=== PATIENT | female | born 1975 | race Caucasian/White ===

== ENCOUNTER 2023-09-22 07:46 | Emergency (ER) | payer BC, SELFPAY ==
--- NOTE | ~2023-09-22 | CT_ITS ---
EXAMINATION: CT abdomen pelvis wo con DATE: 09/22/2023 10:12 INDICATION: Epigastric pain TECHNIQUE: Computed tomography (CT) of the abdomen and pelvis was performed without intravenous contr ast. The dose-length product was 523.28 mGy-cm. Automated exposure control and iterative reconstructi on technique were employed. COMPARISON: None. FINDINGS: Lung bases unremarkable. Heart size normal. No significant pleural or pericardial effusion. There are moderately distended fluid-filled loops of small bowel, colon and stomach without transiti on site, consistent with ileus. There is a focal segment of small bowel wall thickening in the pelvis , suspicious for enteritis per Lung bases are unremarkable. Heart size normal. No significant pleural or pericardial effusion. The l iver, spleen, pancreas, adrenal glands and kidneys are unremarkable. No hydronephrosis. Gallbladder i s present. Mild lumbar spondylosis. No free air or free fluid. IMPRESSION: 1. Moderately distended fluid-filled bowel throughout the abdomen, consistent with ileus. Focal wall thickening of a distal segment of small bowel, suspicious for enteritis. Reviewed, dictated and finalized at location A. TUBE BENDER IMPRESSION: 1. Moderately distended fluid-filled bowel throughout the abdomen, consistent w ith ileus. Focal wall thickening of a distal segment of small bowel, suspicious for enteritis.
[2023-09-22 07:50] VITALS: BP 133/75; PULSE 106; RESP 16; TEMP 36.2; O2SAT 100
--- NOTE | 2023-09-22 07:54 | ECG_ITS ---
Measurements Intervals [place] Rate: 103 P: 51 MO: 118 QRS: 42 QRSD: 100 T: 78 QT: 363 QTc: 477 Interpretive Statements SINUS TACHYCARDIA WITH SHORT MO INTERVAL OTHERWISE NORMAL ECG NO PREVIOUS ECG AVAILABLE FOR COMPARISON Electronically Signed On 09-22-2023 9:08:51 TRAFFIC COUNTER by Je Valdez M.D.
--- NOTE | 2023-09-22 08:22 | ED.GENADULT ---
HPI - General Adult General Chief complaint: Nausea/Vomiting/Diarrhea Stated complaint: N/V/D since after eating [employer] chicken Time Seen by Provider: 09/22/23 08:00 History of Present Illness HPI narrative: 48-year-old female presenting to the emergency department for evaluation of nausea vomiting diarrhea and epigastric pain. Patient reports she suspects that she had some bad chicken . Patient reports that her symptoms have been worsening. Patient does report associated nausea vomiting diarrhea and abdominal pain. Patient is diabetic but does not have her insulin pump on at the time. Patient does have her glucose meter on and reports that her blood sugar is 300. Did explain we are going to help rehydrate her 1st and then closely follow her blood sugar. Related Data Allergies Allergy/AdvReac Type Severity Reaction Status Date / Time codeine Allergy Rash Verified 09/22/23 09:26 Review of Systems Review of Systems: All systems reviewed & are unremarkable except as noted in HPI and below Exam Narrative: APPEARANCE: Well appearing, no pain, no distress, well-nourished. HEAD: normocephalic, atraumatic. EYES: PERRLA/EOMI, conjunctivae clear. NOSE: Normal no drainage EARS:TMS clear with good light reflex. THROAT: Pharynx clear, no exudate. NECK: Supple. No adenopathy, no masses. RESPIRATORY: Airway patent, respirations nonlabored. Clear to auscultation bilaterally, no rales, rhonchi, wheezing. CARDIOVASCULAR: tachycardia ABDOMINAL: Soft, nontender, nondistended, normal bowel sounds MUSCULOSKELETAL: Moves all extremities. Strength/ROM intact, No edema, No calf tenderness. NEURO: Alert. Cranial nerves II through XII intact. Grossly intact Course Course Emergency Course: 48-year-old female presents emergency department for evaluation of epigastric pain with associated nausea and vomiting. Patient is afebrile with no leukocytosis and a stable hemoglobin of 16.2. Patient did have an elevated creatinine but patient was treated with 3 L of normal saline and patient is tolerating p.o.. Patient's blood sugars were significantly improved while in the ED. Patient did not have a significantly elevated beta hydroxybutyrate and patient had no anion gap. Low concern for diabetic ketoacidosis. UA did show high bacteria and a urine culture was ordered. Patient was negative for influenza RSV and for COVID. Patient was updated on the results of her workup patient was comfortable with the plan for discharge and close follow-up with primary care physician. patient felt improved with treatment and patient was comfortable with plan for discharge and close follow-up. Patient was tolerating p.o.. Vital Signs Vital signs: Vital Signs Temperature 97.1 F L 09/22/23 07:50 Pulse Rate 106 H 09/22/23 07:50 Respiratory Rate 16 09/22/23 07:50 Blood Pressure 133/75 09/22/23 07:50 Pulse Oximetry 100 09/22/23 07:50 Oxygen Delivery Room Air 09/22/23 07:50 Temperature 97.8 F 09/22/23 13:48 Pulse Rate 103 H 09/22/23 13:48 Respiratory Rate 18 09/22/23 13:48 Blood Pressure 183/68 H 09/22/23 13:48 Pulse Oximetry 98 09/22/23 13:48 Oxygen Delivery Room Air 09/22/23 07:50 Medical Decision Making Differential Diagnosis Differential Diagnosis: UTI, DKA, dehydration, gastroenteritis Vital Signs Vital Signs: Vital Signs Temperature 97.1 F L 09/22/23 07:50 Pulse Rate 106 H 09/22/23 07:50 Respiratory Rate 16 09/22/23 07:50 Blood Pressure 133/75 09/22/23 07:50 Pulse Oximetry 100 09/22/23 07:50 Oxygen Delivery Room Air 09/22/23 07:50 Temperature 97.8 F 09/22/23 13:48 Pulse Rate 103 H 09/22/23 13:48 Respiratory Rate 18 09/22/23 13:48 Blood Pressure 183/68 H 09/22/23 13:48 Pulse Oximetry 98 09/22/23 13:48 Oxygen Delivery Room Air 09/22/23 07:50 Lab Data Lab results reviewed: Yes I reviewed the patient's lab results. 09/22/23 08:49
[2023-09-22 08:57] LABS: Basophils Absolute Auto 0.1 K/mm3 (0.0-0.1); Basophils Percent Auto 0.8 % (0.2-1.2); Eosinophils Absolute Auto 0.1 K/mm3 (0-0.3); Hematocrit 48.3 % (37.0-47.0); Hemoglobin 16.2 g/dL (12.0-15.0); Immature Granulocyte Absolute 0.02 K/mm3 (0.00-0.031); Immature Granulocyte Percent A 0.3 % (0-0.5); Lymphocytes Absolute Auto 1.48 K/mm3 (0.9-3.2); Lymphocytes Percent Auto 18.9 % (18.3-44.2); Mean Corpuscular HGB Conc 33.5 g/dl (32-36); Mean Corpuscular Hemoglobin 30.9 pg (26-34); Mean Platelet Volume 9.8 fl (7.4-10.4); Monocytes Percent Auto 12.8 % (2.6-8.5); Neutrophils Absolute Auto 5.2 K/mm3 (1.3-6.7); Neutrophils Percent Auto 66.2 % (45.5-73.1); Platelet Count Result 412 k/mm3 (150-375); Red Blood Count 5.25 M/mm3 (4.2-5.4); Red Cell Distribution Width 12.6 % (11.5-14.5); White Blood Count 7.8 K/mm3 (4.5-10.0)
[2023-09-22 09:10] LABS: Alanine Aminotransferase 22 U/L (6-35); Albumin Level 3.8 g/dL (3.5-5.1); Alkaline Phosphatase 125 U/L (38-126); Anion Gap 16 mmol/L (8-16); Aspartate Amino Transferase 15 U/L (14-36); Bilirubin,Total 0.4 mg/dL (0.2-1.3); Blood Urea Nitrogen 40 mg/dL (7-17); Calcium 8.3 mg/dL (8.4-10.2); Carbon Dioxide 15 mmol/L (22-30); Chloride 101 mmol/L (98-107); Estimated CRCL calculation 21 ml/min; Estimated Glomerular Filt Rate 20; Glucose 281 mg/dL (65-110); Potassium 3.4 mmol/L (3.4-5.0); Sodium 132 mmol/L (137-145)
[2023-09-22 09:15] LABS: Lipase < 10 U/L (23-300)
[2023-09-22] MEDS: ONDANSETRON INJ 4 MG/2 ML VIAL IV PUSH (09:26)
[2023-09-22] MEDS: SODIUM CHLORIDE 0.9% IV 1,000 ML 999 ML IV CONT ×3 (09:26→12:43)
[2023-09-22 09:32] LABS: Influenza A QL RT-PCR Negative (Negative); Influenza B QL RT-PCR Negative (Negative); RSV RNA, RT-PCR Negative (Negative); SARS-CoV-2 RNA PCR Negative (Negative)
[2023-09-22 09:42] LABS: Beta-Hydroxybutyrate/Acetoacetate 0.41 mmol/L (0.02-0.27)
[2023-09-22 09:47] LABS: Troponin I < 0.012 ng/mL (0.000-0.034)
[2023-09-22 10:53] LABS: Appearance Urine Cloudy (Clear); Bacteria Urine 1+ /hpf; Bilirubin Urine Negative (Negative); Blood Urine Negative (Negative); Color Urine Yellow (Yellow); Glucose Urine UA Negative (Negative); Ketones Urine Trace mg/dL (Negative); Leukocyte Esterase Ur Negative LEU/UL (Negative); Need Manual Microscopic Reviewed; Nitrate Urine Negative (Negative); Non Pathogenic Casts >20; Protein Urine 1+ mg/dL (Negative); RBC Urine 0-2 /hpf (0-2); Specific Grav Ur 1.015 (1.001-1.035); Squamous Epithelial Cell Urine Few /hpf (Few); Urobilinogen Urine 0.2 mg/dL (<2.0); WBC Urine 0-5 /hpf
[2023-09-22 10:58] LABS: Add Urine Microscopic? YES
[2023-09-22] MEDS: fentaNYL CITRATE INJ (*CRX) 100 MCG/2 ML VIAL 50 MCG IV PUSH (11:34)
[2023-09-22 12:01] VITALS: BP 171/76; PULSE 104; RESP 17; O2SAT 100
[2023-09-22 12:02] VITALS: BP 174/80; PULSE 105; RESP 17; TEMP 36.6; O2SAT 100
[2023-09-22] MEDS: INSULIN HUMAN REGULAR (*BKC) 100 UNITS/ML 6 UNITS IV PUSH (12:41)
[2023-09-22 13:01] VITALS: BP 197/59; PULSE 117; RESP 17; O2SAT 100
[2023-09-22 13:06] LABS: Pregnancy On Board Control Positive; Urine Pregnancy Test Negative
[2023-09-22 13:48] VITALS: BP 183/68; PULSE 103; RESP 18; TEMP 36.6; O2SAT 98
[2023-09-22 13:57] LABS: Glucose Point of Care 130 mg/dl (65-105)
== END 2023-09-22 14:35 | disposition home or self-care (01) ==
PROVIDERS: Emergency Provider Emergency Medicine; PCP Internal Medicine Infectious Disease
DX: R11.2 Nausea with vomiting, unspecified (principal); E86.0 Dehydration; Z20.822 Contact with and (suspected) exposure to COVID-19; E11.9 Type 2 diabetes mellitus without complications; Z79.4 Long term (current) use of insulin
CPT/HCPCS: 36415; 74176; 80053; 81001; 81025; 82010; 82948; 83690; 84484; 85025; 87077; 87086; 87186; 87637; 93005; 96361; 96374; 96375; 99284; J1815; J2405; J3010; J7030